=== PATIENT | female | born 1975 | race Two or more races ===

== ENCOUNTER → 2016-09-26 | Outpatient (REF) | payer OTHER | LOC: M SFHCWAGY 15:00 | PROVIDERS: ATTEND Nurse Practitioner Women's Health | DX: Z12.4 Encounter for screening for malignant neoplasm of cervix (principal) ==

== ENCOUNTER → 2017-08-28 | Outpatient (REF) | payer OTHER ==
[2017-08-31 03:02] LABS: EBV VIRAL CAPSID AG IgG >600.0 U/mL (0.0-17.9)
[2017-08-31 03:02] LABS: EBV VIRAL CAPSID AG IgM <36.0 U/mL (0.0-35.9)
== END ==
LOC: M LAB REF 17:57
DX: R53.83 Other fatigue (principal)
CPT/HCPCS: 86665

== ENCOUNTER → 2017-10-04 | Outpatient (CLI) | payer OTHER | LOC: M ADAMS 08:57 | DX: M25.472 Effusion, left ankle (principal) | CPT/HCPCS: 73610 ==

== ENCOUNTER → 2018-03-23 | Outpatient (REF) | payer OTHER | LOC: M LAB 11:42 | PROVIDERS: ATTEND Nurse Practitioner Family | DX: R19.7 Diarrhea, unspecified (principal) ==

== ENCOUNTER 2018-04-26 22:54 | Emergency (ER) | payer OTHER ==
[~2018-04-26] VITALS: Ht 180.3 cm; Wt 86.4 kg
[2018-04-26] MEDS ORDERED: CITA20TA4 (23:01)
[2018-04-26] MEDS ORDERED: INSUHUMDS (23:01)
[2018-04-26] MEDS ORDERED: dexameTHASONE 4 MG/ML 1ML VIAL (J1100) PO ONE (23:15)
[2018-04-26] MEDS ORDERED: IPRATROPIUM 0.5MG/ALBUTEROL 2.5MG INH SOL UD 3ML (DUONEB)(J7620) NEB ONE (23:15)
[2018-04-26] MEDS ORDERED: CHERSYP3 PO (23:56)
[2018-04-26] MEDS ORDERED: PRED20TA PO (23:56)
[2018-04-27] MEDS ORDERED: guaiFENesin/CODEINE SYRUP 5 ML UDC PO ONE
[2018-04-27 00:02] VITALS: BP 132/86
--- NOTE | 2018-04-27 08:16 | REP ---
Clinical: Cough and shortness of breath . Comparison: 06/03/2007 . Technique: PA and lateral. Findings: The mediastinum and cardiac silhouette are normal. The lung narvaez are clear and without acute consolidation, effusion, or pneumothorax. The skeletal structures are intact and normal. Impression: 1. No acute cardiopulmonary process. Electronically Signed by Ton Nelson MD 04/27/2018 08:08 A
== END 2018-04-27 00:14 | disposition home or self-care (01) ==
LOC: M ED 22:54
DX: J98.01 Acute bronchospasm (principal); J06.9 Acute upper respiratory infection, unspecified; E11.9 Type 2 diabetes mellitus without complications; F41.9 Anxiety disorder, unspecified; Z79.4 Long term (current) use of insulin; Z79.899 Other long term (current) drug therapy
CPT/HCPCS: 71046; 94640; 99283; J1100

== ENCOUNTER → 2018-04-30 | Outpatient (REF) | payer OTHER ==
[~2018-04-30] MED LIST: CHERSYP3 PO; CITA20TA4; INSUHUMDS; PRED20TA PO
== END ==
LOC: M LAB REF 19:24
PROVIDERS: ATTEND Physician Assistant Medical
DX: J02.9 Acute pharyngitis, unspecified (principal)

== ENCOUNTER → 2018-05-01 | Outpatient (REF) | payer OTHER | LOC: M LAB REF 14:37 | PROVIDERS: ATTEND Internal Medicine | DX: R05 Cough (principal); R06.02 Shortness of breath ==

== ENCOUNTER → 2018-07-04 | Outpatient (REF) | payer OTHER ==
[~2018-07-04] MED LIST changes: -CITA20TA4; +CITA20TA6
[2018-07-05 10:31] LABS: HEPATITIS A ANTIBODY IGM NEGATIVE (NEGATIVE); HEPATITIS B CORE ANTIBODY IGM NEGATIVE (NEGATIVE); HEPATITIS B SURFACE ANTIGEN NEGATIVE (NEGATIVE); HEPATITIS C VIRUS ABY INDEX 0.1 INDEX (<0.8)
[2018-07-07 00:08] LABS: EBV AB TO NUCLEAR ANTIGEN >600.0 U/mL (0.0-17.9); EBV VIRAL CAPSID AG IgG >600.0 U/mL (0.0-17.9); EBV VIRAL CAPSID AG IgM <36.0 U/mL (0.0-35.9); HSV IgM TYPES 1&2 <0.91 Ratio (0.00-0.90)
== END ==
LOC: M LAB REF 17:24
PROVIDERS: ATTEND Nurse Practitioner Family
DX: Z11.59 Encounter for screening for other viral diseases (principal)

== ENCOUNTER → 2020-02-05 | Outpatient (REF) | payer BC ==
[2020-02-07 12:15] LABS: ANTINUCLEAR ANTIBODIES DIRECT Negative (Negative); SJOGREN'S ANTI SS-A <0.2 AI (0.0-0.9); SJOGREN'S ANTI SS-B <0.2 AI (0.0-0.9)
== END ==
LOC: M LAB REF 16:09
PROVIDERS: ATTEND Registered Nurse
DX: L24.89 Irritant contact dermatitis due to other agents (principal)

== ENCOUNTER → 2020-08-05 | Outpatient (CLI) | payer BC | LOC: M LABSMTC 12:01 | PROVIDERS: ATTEND Family Medicine | DX: Z11.52 Encounter for screening for COVID-19 (principal) | CPT/HCPCS: C9803; U0003 ==

== ENCOUNTER → 2020-09-09 | Outpatient (REF) | payer BC | LOC: M LAB REF 13:20 | PROVIDERS: ATTEND Internal Medicine | DX: R19.7 Diarrhea, unspecified (principal) ==

== ENCOUNTER → 2021-03-14 | Outpatient (REF) | payer BC | LOC: M LAB REF 11:28 | PROVIDERS: ATTEND Internal Medicine | DX: H92.01 Otalgia, right ear (principal) ==

== ENCOUNTER → 2021-03-17 | Outpatient (REF) | payer BC | LOC: M LAB REF 16:40 | PROVIDERS: ATTEND Physician Assistant Medical | DX: H66.41 Suppurative otitis media, unspecified, right ear (principal) ==

== ENCOUNTER → 2021-05-30 | Outpatient (CLI) | payer BC ==
[2021-05-30 18:34] LABS: BLOOD UREA NITROGEN 15 MG/DL (7-18); CREATININE FOR GFR 0.76 MG/DL (0.55-1.30); GLOMERULAR FILTRATION RATE > 60.0 (>58)
== END ==
LOC: M LAB 16:51
PROVIDERS: ATTEND Otolaryngology
DX: H90.11 Conductive hearing loss, unilateral, right ear, with unrestricted hearing on the contralateral side (principal)

== ENCOUNTER → 2021-06-01 | Outpatient (CLI) | payer BC ==
[~2021-06-01] MED LIST changes: +PROHANCE 279.3MG/ML 15ML VIAL ONE; +PROHANCE 279.3MG/ML 5ML VIAL ONE
== END ==
LOC: M PLAIMG 14:30
PROVIDERS: ATTEND Otolaryngology
DX: H92.01 Otalgia, right ear (principal); H90.11 Conductive hearing loss, unilateral, right ear, with unrestricted hearing on the contralateral side
CPT/HCPCS: 70553; A9576

== ENCOUNTER → 2021-06-07 | Outpatient (REF) | payer BC ==
[~2021-06-07] MED LIST changes: -PROHANCE 279.3MG/ML 15ML VIAL ONE; -PROHANCE 279.3MG/ML 5ML VIAL ONE
[2021-06-07 13:13] LABS: BACTERIA, URINE AUTO 2+ (NEGATIVE); RBC, URINE AUTO 4 /HPF (0-3); SQUAMOUS EPITHELIAL CELL UR AU 1 /HPF (0-6); WBC, URINE AUTO 60 /HPF (0-3)
== END ==
LOC: M LAB REF 12:25
PROVIDERS: ATTEND Physician Assistant Medical
DX: N39.0 Urinary tract infection, site not specified (principal)

== ENCOUNTER → 2022-05-30 | Outpatient (RCR) | payer BC | LOC: M PT 05-24 11:13 | PROVIDERS: ATTEND Orthopaedic Surgery | DX: M75.02 Adhesive capsulitis of left shoulder (principal) ==

== ENCOUNTER 2022-06-08 11:30 | Outpatient (RCR) | payer BC | END 2022-06-30 | LOC: M PT 11:30 | PROVIDERS: ATTEND Orthopaedic Surgery | DX: M75.02 Adhesive capsulitis of left shoulder (principal) ==

== ENCOUNTER 2022-07-13 10:00 | Outpatient (RCR) | payer BC | END 2022-07-30 | LOC: M PT 10:00 | PROVIDERS: ATTEND Orthopaedic Surgery | DX: M75.02 Adhesive capsulitis of left shoulder (principal) ==

== ENCOUNTER 2022-08-17 11:30 | Outpatient (RCR) | payer BC | END 2022-08-30 | LOC: M PT 11:30 | PROVIDERS: ATTEND Orthopaedic Surgery | DX: M75.02 Adhesive capsulitis of left shoulder (principal) ==

== ENCOUNTER → 2022-09-18 | Outpatient (REF) | payer BC ==
[2022-09-18 17:15] LABS: APPEARANCE, URINE HAZY (CLEAR); BACTERIA, URINE AUTO NEGATIVE (NEGATIVE); BILIRUBIN, URINE AUTO NEGATIVE (NEGATIVE); BLOOD, URINE BLOOD NEGATIVE (NEGATIVE); COLOR, URINE YELLOW (YELLOW); GLUCOSE, URINE (UA) AUTO NEGATIVE (NEGATIVE); KETONE, URINE AUTO NEGATIVE (NEGATIVE); LEUKOCYTE ESTERASE, URINE AUTO NEGATIVE (NEGATIVE); MUCUS, URINE SMALL (NEGATIVE); NITRITE, URINE AUTO NEGATIVE (NEGATIVE); PROTEIN, URINE AUTO NEGATIVE (NEGATIVE); RBC, URINE AUTO 0 /HPF (0-3); SPECIFIC GRAVITY URINE AUTO 1.024 (1.002-1.035); SQUAMOUS EPITHELIAL CELL UR AU 1 /HPF (0-6); UROBILINOGEN, URINE AUTO 0.2 mg/dL (0.0-2.0); WBC, URINE AUTO 1 /HPF (0-3)
[2022-09-18 17:41] LABS: BASO # 0.1 10^3/uL (0.0-0.2); BASO % 1.3 % (0.0-1.0); EOS # 0.3 10^3/uL (0.0-0.5); EOS % 3.8 % (0.0-3.0); HEMOGLOBIN 13.7 g/dl (12.0-15.5); LYMPH # 2.1 10^3/uL (1.5-5.0); LYMPH % 27.3 % (24.0-44.0); MEAN CORPUSCULAR HGB CONC 31.9 g/dl (32.0-36.5); MEAN CORPUSCULAR VOLUME 91.1 fl (80.0-96.0); MONO # 0.7 10^3/uL (0.0-0.8); MONO % 9.2 % (2.0-8.0); NEUTROPHILS # 4.5 10^3/uL (1.5-8.5); NEUTROPHILS % 58.1 % (36.0-66.0); PLATELET COUNT, AUTOMATED 337 10^3/uL (150-450); RED BLOOD COUNT 4.72 10^6/uL (4.00-5.40); WHITE BLOOD COUNT 7.7 10^3/uL (4.0-10.0)
[2022-09-18 18:13] LABS: ALBUMIN 3.9 G/DL (3.2-5.2); ALKALINE PHOSPHATASE 76 U/L (46-116); ALT/SGPT 15 U/L (7.0-40); AST/SGOT 12 U/L (<34); BILIRUBIN,TOTAL 0.8 MG/DL (0.3-1.2); BLOOD UREA NITROGEN 10 MG/DL (9-23); CALCIUM LEVEL 8.5 MG/DL (8.5-10.1); CARBON DIOXIDE LEVEL 28 MMOL/L (20-31); CHLORIDE LEVEL 103 MMOL/L (98-107); CHOLESTEROL LEVEL 232 MG/DL (<200); CPK CREATINE PHOSPHOKINASE 49 U/L (34-145); GLUCOSE, FASTING 193 MG/DL (60-100); HDL CHOLESTEROL 72.5 MG/DL (>40); LDL CHOLESTEROL 146.1 MG/DL (<100); MAGNESIUM LEVEL 1.7 MG/DL (1.8-2.4); NON-HDL-C 159.5 MG/DL; POTASSIUM SERUM 3.8 MMOL/L (3.5-5.1); SODIUM LEVEL 138 MMOL/L (136-145); TOTAL PROTEIN 6.8 G/DL (5.7-8.2); TRIGLYCERIDES LEVEL 67 MG/DL (<150)
[2022-09-18 18:22] LABS: CREATININE, URINE 261.5 MG/DL; CREATININE,RANDOM URINE 261.5 MG/DL; MAU/CREAT RATIO 5.3 MCG/MG (0.0-30.0)
[2022-09-18 18:25] LABS: CREATININE FOR GFR 0.71 MG/DL (0.55-1.30); GLOMERULAR FILTRATION RATE > 60.0 (>58)
[2022-09-18 18:29] LABS: THYROID STIMULATING HORMONE 1.053 uIU/ML (0.55-4.78)
== END ==
LOC: M LAB REF 16:25
PROVIDERS: ATTEND Internal Medicine
DX: M25.512 Pain in left shoulder (principal); K22.70 Barrett's esophagus without dysplasia; E10.311 Type 1 diabetes mellitus with unspecified diabetic retinopathy with macular edema

== ENCOUNTER → 2022-09-25 | Outpatient (REF) | payer BC | LOC: M LAB REF 16:13 | PROVIDERS: ATTEND Physician Assistant | DX: R50.9 Fever, unspecified (principal) ==

== ENCOUNTER 2022-09-28 11:30 | Outpatient (RCR) | payer BC | END 2022-09-29 | LOC: M PT 11:30 | PROVIDERS: ATTEND Orthopaedic Surgery | DX: M75.02 Adhesive capsulitis of left shoulder (principal) ==

== ENCOUNTER → 2023-03-15 | Outpatient (REF) | payer BC ==
[2023-03-15 13:04] LABS: ALBUMIN 3.6 G/DL (3.2-5.2); ALKALINE PHOSPHATASE 70 U/L (46-116); ALT/SGPT 22 U/L (7.0-40); AST/SGOT 13 U/L (<34); BILIRUBIN,DIRECT 0.1 MG/DL (<0.4); BILIRUBIN,TOTAL 0.4 MG/DL (0.3-1.2); BLOOD UREA NITROGEN 14 MG/DL (9-23); CALCIUM LEVEL 9.2 MG/DL (8.5-10.1); CARBON DIOXIDE LEVEL 25 MMOL/L (20-31); CHLORIDE LEVEL 108 MMOL/L (98-107); CHOLESTEROL LEVEL 170 MG/DL (<200); CHOLESTEROL RISK RATIO 2.61 (<5); CREATININE FOR GFR 0.74 MG/DL (0.55-1.30); GLOMERULAR FILTRATION RATE > 60.0 (>58); GLUCOSE, FASTING 137 MG/DL (60-100); HDL CHOLESTEROL 65.1 MG/DL (>40); LDL CHOLESTEROL 94.5 MG/DL (<100); NON-HDL-C 104.9 MG/DL; POTASSIUM SERUM 4.7 MMOL/L (3.5-5.1); SODIUM LEVEL 142 MMOL/L (136-145); TOTAL PROTEIN 6.3 G/DL (5.7-8.2); TRIGLYCERIDES LEVEL 52 MG/DL (<150)
[2023-03-15 13:06] LABS: CPK CREATINE PHOSPHOKINASE 37 U/L (34-145)
== END ==
LOC: M LAB REF 12:26
PROVIDERS: ATTEND Internal Medicine
DX: R01.1 Cardiac murmur, unspecified (principal); Z79.899 Other long term (current) drug therapy; E78.5 Hyperlipidemia, unspecified

== ENCOUNTER → 2023-04-23 | Outpatient (REF) | payer BC | LOC: M SFHCWAGY 09:47 | PROVIDERS: ATTEND Nurse Practitioner Family | DX: Z12.72 Encounter for screening for malignant neoplasm of vagina (principal); Z11.51 Encounter for screening for human papillomavirus (HPV) ==

== ENCOUNTER → 2024-07-07 | Outpatient (CLI) | payer BC | LOC: M PLAIMG 15:08 | PROVIDERS: ATTEND Nurse Practitioner Adult Health | DX: K59.00 Constipation, unspecified (principal) ==